=== PATIENT | male | born 1990 | race Caucasian/White ===

== ENCOUNTER 2016-11-24 14:13 | Emergency (ER) | payer MEDICAID, OTHER ==
[~2016-11-24] VITALS: Ht 160 cm; Wt 55.0 kg
[2016-11-24 14:27] VITALS: Ht 160 cm; Wt 55.0 kg
[2016-11-24] MEDS ORDERED: PERMETHRIN 5% 60 GM CR TOP STA (15:28)
[2016-11-24] MEDS ORDERED: HC1C30 TOP (15:31)
[2016-11-24] MEDS ORDERED: ELIM TOP (15:31)
--- NOTE | 2016-11-24 15:35 | ERD ---
ER Documentation Chief Complaint Date/Time DATE: 11/24/16 TIME: 15:33 Chief Complaint rash total body for 5 days HPI 26-year-old Arabic-speaking male. [employer] use. The patient describes approximately 1 week of rash to his total body that started in the inner thigh region and is spread to the extremities. He describes it as slightly raised, pruritic. The patient has lesions in between the interdigital spaces of the bilateral hands. He has not tried any medications. No fevers or chills. No travel. No diarrhea. ROS All systems reviewed and are negative except as per history of present illness. Medications Home Meds Active Scripts Hydrocortisone* Topical (Hydrocortisone* Topical) 1%-28.35 Gm Cream..g., 1 APPLIC TOP Q6 Y for ITCHING, #1 TUB Prov:JUDD RUIZ MD 11/24/16 Permethrin* (Elimite*) 5% Cr, 1 APPLIC TOP ONCE, #1 TUB Prov:JUDD RUIZ MD 11/24/16 PMhx/Soc Medical and Surgical Hx: pt denies Medical Hx, pt denies Surgical Hx Hx Alcohol Use: No Hx Substance Use: No Hx Tobacco Use: No FmHx Family History: No diabetes Physical Exam Vitals Vital Signs Date Time Temp Pulse Resp B/P Pulse Ox O2 Delivery O2 Flow Rate FiO2 11/24/16 14:27 97.8 99 18 124/78 98 Physical Exam General: Well developed, well nourished, no acute distress Head: Normocephalic, atraumatic. Eyes: EOM intact ENT: Moist mucous membranes Neck: Full ROM Respiratory: No respiratory distress Cardiovascular: Good capillary refil Abdominal: Nondistended : Deferred MSK: No edema, no unilateral swelling, 5/5 strength Neurologic: Alert and oriented, moving all extremities, normal speech, steady gait Skin: Raised plaque-like rash that is erythematous, blanching diffusely to the majority of his extremities and trunk with interdigital spaces involved, some linear tracking is also noted on the upper extremities. Psych: Normal mood Results 24 hrs Current Medications Medications (Trade) Dose Ordered Sig/Maria D Route PRN Reason Start Time Stop Time Status Last Admin Dose Admin Permethrin (Elimite 5% Cr) 1 applic ONCE STAT TOP 11/24/16 15:28 11/24/16 15:29 DC Procedures/MDM The rash is most concerning for scabies. Consider possible contact dermatitis. No systemic signs or symptoms concerning for infectious process such as measles, recommended spotted fever etc. The patient is otherwise well-appearing in the emergency room. He states that he has no money, no insurance. A tub of permethrin cream was provided to the patient here in the emergency room. I discussed permethrin wash. If this does not improve topical hydrocortisone may be reasonable and outpatient dermatology follow-up would be recommended. Patient referred to the [facility]. We discussed follow up with the patient's primary care doctor within 24 to 48 hours as needed. We also discussed return to the emergency room for worsening symptoms or worsening condition. Outpatient referral: [None required] Discharge Medications: Permethrin, hydrocortisone 1% Departure Diagnosis: Primary Impression: Scabies Condition: Stable Patient Instructions: Scabies [facility] Usted se cleaning hecho un examen mdico de control que le indica que no est en celine condicin que requiera tratamiento urgente en el Departamento de Emergencia. Un estudio ms profundo y el tratamiento de fang condicin pueden esperar sin ningn riesgo hasta que usted sea atendida/o en el consultorio de fang mdico o celine cl hector. Es responsabilidad suya arreglar celine nirmala para el seguimiento del deion. MANEJO DE CONDICIONES NO URGENTES EN EL FUTURO 1) Si usted tiene un mdico de atencin primaria: Usted debera llamar a fang mdico de atencin primaria antes de venir al departamento de emergencia. Despus de las horas de consultorio, fang doctor o fang asociado/a est disponible por telfono. El mdico o enfermero de zahida en el servicio telefnico puede asesorarle por arturo medio para atender el problema, o deion contrario se puede programar celine nirmala. 2) Si usted no tiene un mdico de atencin primaria: Llame al mdico o clnica de referencia que aparece abajo hoang las horas de consultorio para hacer celine nirmala para que le vean. CLINICAS: [facility] [phone] [facility] [phone] [facility] [phone] [facility] [phone] [facility]. [place] [phone] [facility]. [phone] [facility]. [facility] () ted se cleaning hecho un examen mdico de control que le indica que no est en celine condicin que requiera tratamiento urgente en el Departamento de Emergencia. Un estudio ms profundo y el tratamiento de fang condicin pueden esperar sin ningn riesgo hasta que ted sea atendida/o en el consultorio de fang mdico o celine cl hector. Es responsabilidad suya arreglar celine nirmala para el seguimiento del deion. MANEJO DE CONDICIONES NO URGENTES EN EL FUTURO 1) Si usted tiene un mdico de atencin primaria: ted debera llamar a fang mdico de atencin primaria antes de venir al departamento de emergencia. Despus de las horas de consultorio, fang doctor o fang asociado/a est disponible por telfono. El mdico o enfermero de zahida en el servicio telefnico puede asesorarle por arturo medio para atender el problema, o deion contrario se puede programar celine nirmala. 2) Si usted no tiene un mdico de atencin primaria: Llame al mdico o condado institucions de referencia que aparece abajo hoang las horas de consultorio para hacer celine nirmala para que le vean. SI USTED NO PUEDE PAGAR PARA RHIANNON UN MEDICO puede ir a: [facility] [place] [address] [place] [address] [facility] [address] [place] [address] [facility] [address] [place] [address] [facility] [address] [place] [address] Additional Instructions: Call your primary care doctor TOMORROW for an appointment during the next 1 WEEK.Tell the legal secretary that you were referred from this facility.See the doctor sooner or return here if your condition worsens before your appointment time. JUDD RUIZ MD Nov 24, 2016 15:35
== END 2016-11-24 16:46 | disposition home or self-care (01) ==
LOC: FTE 14:13
DX: B86 Scabies (principal)
CPT/HCPCS: 99283